=== PATIENT | male | born 1955 | race Caucasian/White ===

== ENCOUNTER 2017-01-07 11:35 | Inpatient (IN) | payer OTHER ==
[2017-01-04 11:34] LABS: HEMOGLOBIN 13.4 g/dL (13.6-17.8)
[2017-01-04 11:47] LABS: BUN (BLOOD UREA NITROGEN) 21 MG/DL (6-23); CALCIUM, SERUM 8.7 MG/DL (8.5-10.4); CHLORIDE, SERUM 112 MMOL/L (96-112); CO2 (CARBON DIOXIDE) 26 MMOL/L (24-34); GFR AFRICAN AMERICAN 64 ML/MIN (>=60); GFR NON AFRICAN AMERICAN 55 ML/MIN (>=60); GLUCOSE, SERUM 104 MG/DL (60-99); POTASSIUM, SERUM 4.5 MMOL/L (3.5-5.3); SODIUM, SERUM 145 MMOL/L (135-148)
[2017-01-04 11:51] LABS: CREATININE 1.38 MG/DL (0.70-1.30)
[2017-01-04 12:06] LABS: ASCORBIC ACID (UR NOT ORDER) NEG (NEG); BILIRUBIN, URINE NEGATIVE (NEG); KETONE, URINE NEGATIVE (NEG); LEUKOCYTE ESTERASE(NOT OR TRACE (NEG); WBC (NOT ORDERED) (RFLEX) 32 (0-5)
--- NOTE | ~2017-01-07 | OP ---
Record Of Operation [facility] [address] [place]. [address] NAME: JOEY SEBASTIAN : 57 STATUS : ADM IN PAT#: [id number] AGE: 61 ADM/REG DATE : 01/07/17 MR#: [id number] REPORT SERV DATE: 01/08/17 DICTATED BY: AMADOU CORTES JR. DATE: 01/08/17 REPORT STATUS : Draft TRANSCRIBED BY: MODL DATE: 01/08/17 DATE OF PROCEDURE: 01/08/2017 SURGEON: Amadou Cortes M.D. PREOPERATIVE DIAGNOSIS: Right renal pelvic stone. POSTOPERATIVE DIAGNOSIS: Right renal pelvic stone. PROCEDURE PERFORMED: Right percutaneous ultrasonic lithotripsy or right percutaneous nephrostolithotripsy. COMPLICATIONS: None. CONSULTATIONS: None. ANESTHESIA: General with an endotracheal tube. SPECIMEN: Stone fragments. DRAINS: A 6 x 26 cm double-J stent, 16-Cameroonian Bowman catheter, and 20-Cameroonian Gambell tip catheter as a nephrostomy tube. ESTIMATED BLOOD LOSS: 10 mL. INDICATION: Mr. Sebastian is a 61-year-old gentleman with a longstanding right renal pelvic stone, approximately 2.5 cm in size. We discussed options of treatment including lithotripsy, ureteroscopy, and a percutaneous approach. He has chosen a percutaneous approach for treatment of the stone. PROCEDURE IN DETAIL: After the patient was identified and proper informed consent was obtained, he was taken to the operating room. General anesthesia was performed without complication using an endotracheal tube. He was then prepped and draped in the normal sterile fashion in the prone position. Using the pre-placed ureteral access, I threaded a superstiff guidewire down the access to the bladder under fluoroscopic guidance and removed the access. I then placed a double lumen catheter over the guidewire and placed a second superstiff guidewire and removed the double lumen catheter with two guidewires in place, I made a small stab incision in the skin. Using a dilating balloon, I dilated the tract into the kidney, into the renal pelvis, and placed a 26-Cameroonian nephroscopy sheath. I then deflated the balloon, placing the nephroscope through the sheath into the kidney, visualized the stone, and using the ultrasound Lithotripter machine, fragmented and removed all stone fragments. I inspected each of the calices as well. I did not note any other stone fragments present. The UPJ appeared without inflammation. There were no stones at the UPJ. I then removed the nephroscope and deployed a 6 x 26 cm double-J stent without difficulties with a nice curl in both the bladder and the kidney. A 20-Cameroonian Gambell tip catheter was then advanced through the nephroscopy sheath into the renal pelvis. 2 mL of sterile water Record Of Operation [address] [place]. [address] NAME: JOEY SEBASTIAN : 57 STATUS : ADM IN PAT#: [id number] AGE: 61 ADM/REG DATE : 01/07/17 MR#: [id number] REPORT SERV DATE: 01/08/17 DICTATED BY: AMADOU CORTES JR. DATE: 01/08/17 REPORT STATUS : Draft TRANSCRIBED BY: SHALINI DATE: 01/08/17 was placed in the balloon and nephrostogram was done antegrade, which did not show any extravasation. I then removed the nephroscopy sheath and sutured in the Councill tip catheter and put a plug in the Councill tip catheter with a dressing. The patient was awakened in the operating room and transferred to the postanesthesia care unit in stable condition. I will remove his Bowman catheter and nephrostomy tube in the morning. KYAW/SHALINI adou Cortes Jr., M.D. / [id number] CC: Barbie Melo Jr., MD
[~2017-01-07 11:35] MED LIST: ASAB PO; CO Q 10 PO; COREG12 PO; CRESTOR10 PO; LISINOPRIL40 MG PO; PRILOSEC40 MG PO
[2017-01-07] MEDS ORDERED: NORCO1 TA2 (13:03)
[2017-01-07 13:22] LABS: HEMATOCRIT 39.7 % (40.0-51.0); HEMOGLOBIN 13.4 g/dL (13.6-17.8); PLATELET COUNT 135 10/3/uL (150-400)
[2017-01-09] MEDS ORDERED: PCET PO (10:19)
[2017-01-14 18:07] LABS: SOURCE OF STONE Right Kidney (()); STONE COMPOSITION TWO DNR (())
== END 2017-01-09 12:38 | disposition home or self-care (01) | DRG 661 ==
LOC: CSSUOP 11:35 → RADHOLD 11:50 → 4SO 17:18
PROVIDERS: Urology
PROC: 0TC33ZZ Extirpation of Matter from Right Kidney Pelvis, Percutaneous Approach (ICD-10-PCS; principal; 2017-01-08 15:00)
PROC: 0T763DZ Dilation of Right Ureter with Intraluminal Device, Percutaneous Approach (ICD-10-PCS; principal; 2017-01-08 15:00)
DX: N20.0 Calculus of kidney (principal); I10 Essential (primary) hypertension; I25.10 Atherosclerotic heart disease of native coronary artery without angina pectoris; Z95.1 Presence of aortocoronary bypass graft; I45.6 Pre-excitation syndrome; K21.9 Gastro-esophageal reflux disease without esophagitis; Z79.82 Long term (current) use of aspirin; Z87.891 Personal history of nicotine dependence
CPT/HCPCS: 36415; 50395; 50433; 76000; 80048; 81001; 82365; 85014; 85018; 85049; 85610; 85730; 86850; 86900; 86901; 87086; 93005; A9270-GY; C1729; C1769; C1894; C2617; J0360; J1170; J1956; J2250; J2270; J2405; J2710; J3010; Q9967